=== PATIENT | male | born 1985 | race Caucasian/White ===

== ENCOUNTER 2018-02-19 10:15 | Day surgery (SDC) | payer BC ==
[~2018-02-19 10:15] MED LIST: ACETAMINOPHEN 1,000 MG/100 ML BTL IV ONE; CEFAZOLIN 2 Gram 2 GM/50 ML BAG IVPB ONE
[2018-02-19] MEDS ORDERED: DEXAMETHASONE 4 MG/ML 1ML VIAL IVP ONE (10:16)
[2018-02-19] MEDS ORDERED: ONDANSETRON HCL IV 4 MG/2 ML VIAL IVP ONE (10:16)
[2018-02-19] MEDS ORDERED: BUPIVACAINE 0.5% W/EPI MPF 30 ML VIAL IVP ONE (10:16)
[2018-02-19] MEDS ORDERED: SEVOFLURANE 250 ML INH ONE (10:16)
[2018-02-19] MEDS ORDERED: FENTANYL PF 100MCG/2ML VIAL IV ONE (10:16)
[2018-02-19] MEDS ORDERED: MIDAZOLAM HCL 2MG/2ML VIAL IV ONE (10:16)
[2018-02-19] MEDS ORDERED: LIDOCAINE 2% MDV (20MG/ML) 20ML VIAL IV ONE (10:16)
[2018-02-19] MEDS ORDERED: PROPOFOL 10 MG/ML VIAL IV ONE (10:16)
--- NOTE | 2018-02-20 12:00 | Operative Note ---
DATE OF SURGERY: 02/19/2018 PREOPERATIVE DIAGNOSIS: Internal derangement right knee. POSTOPERATIVE DIAGNOSES: 1. Significant fat pad impingement. 2. Fringe tear involving the lateral horn of the lateral meniscus. OPERATION: 1. Right knee arthroscopy with partial lateral meniscectomy. 2. Right knee arthroscopy with debridement of fat pad. Staff Surgeon: Elver Parikh MD Anesthesia: General. Preparation: Chloraprep. Individual Considerations: None. PROCEDURE: The patient was taken to the operating room and placed supine on the operating room table. The patient had a successful induction with general anesthetic. Examination under anesthesia showed no excursion Quique's, no pivot shift, and normal ligaments. The knee was then prepped and draped in the usual fashion. The patient had a superolateral inflow cannula placed. Skin was infiltrated with 0.5% Marcaine with epinephrine prior. The knee was then inflated with normal saline. An inferomedial and an inferolateral lateral portal were made in a similar fashion. The arthroscope was introduced through the inferolateral portal up into the pouch. Patellofemoral compartment showed a large impinging fat pad almost a third of the way up the patellofemoral compartment in extension. The patellofemoral joint was otherwise intact. The shaver was introduced and this was debrided. No loose bodies or synovitis were seen in either gutter. In the medial compartment, medial compartment structures were well seen and probed and found to be normal including medial meniscus and medial articular cartilage in the notch. The ACL looked abnormal consistent with a previous reconstruction but was otherwise basically intact. It tightened up nicely with a drawer but not in an undue way. PCL was intact. The lateral compartment showed basically a fringe tear involving the lateral meniscus which was unstable and this was debrided back to a stable rim with basket forceps and a shaver. Intraarticular cartilage and the remainder of the meniscus and popliteal tendon were normal. The knee was then irrigated out with saline to remove loose floating debris. Portals were closed with landry, and 20 mL of 0.5% Marcaine with epinephrine along with 4 mg of morphine and 40 mg of Depo-Medrol were injected into the knee. A sterile bulky compressive dressing was applied. The patient tolerated procedure well. Needle and sponge counts were correct. Estimated blood loss was minimal. He was taken back to recovery in good condition. There were no complications. [facility]
== END 2018-02-19 14:30 | disposition home or self-care (01) ==
LOC: SUR 10:15
PROVIDERS: ATTEND Orthopaedic Surgery
DX: S83.281A Other tear of lateral meniscus, current injury, right knee, initial encounter (principal); M79.4 Hypertrophy of (infrapatellar) fat pad
CPT/HCPCS: 29881; 01400; J2405; J3010; J0690